=== PATIENT | female | born 1950 | race Caucasian/White ===

== ENCOUNTER 2024-02-18 15:38 | Emergency (ER) | payer MEDICARE, OTHER ==
[~2024-02-18] VITALS: Ht 165.1 cm; Wt 77.4 kg
[2024-02-18] MEDS ORDERED: FELO5TAB26 PO (16:17)
[2024-02-18] MEDS ORDERED: LOSA100T46 PO (16:17)
[2024-02-18] MEDS ORDERED: SYNT50TA PO (16:17)
[2024-02-18] MEDS ORDERED: CHLO125TA PO (16:17)
[2024-02-18] MEDS ORDERED: FLUV20CA2 PO (16:17)
[2024-02-18] MEDS ORDERED: ATIV1TAB7 PO (16:18)
[2024-02-18] MEDS ORDERED: METH-1164 PO (20:22)
[2024-02-18] MEDS ORDERED: LIDO5DIS41 TD (20:22)
[2024-02-18] MEDS: methocarbamoL 500 MG TAB PO ONE (20:25)
[2024-02-18] MEDS: LIDOCAINE 5% (LIDODERM) PATCH TD ONE (20:26)
[2024-02-18 20:45] VITALS: BP 168/72; TEMP 97.4; O2SAT 99
== END 2024-02-18 20:49 | disposition home or self-care (01) ==
LOC: M ED 15:38
DX: S20.219A Contusion of unspecified front wall of thorax, initial encounter (principal); W01.118A Fall on same level from slipping, tripping and stumbling with subsequent striking against other sharp object, initial encounter; I10 Essential (primary) hypertension; Y92.814 Boat as the place of occurrence of the external cause; Y93.89 Activity, other specified; Y99.9 Unspecified external cause status; Z88.0 Allergy status to penicillin; Z88.2 Allergy status to sulfonamides; Z88.1 Allergy status to other antibiotic agents; Z91.030 Bee allergy status; Z91.011 Allergy to milk products; Z91.018 Allergy to other foods; Z79.811 Long term (current) use of aromatase inhibitors; Z79.899 Other long term (current) drug therapy